=== PATIENT | female | born 1990 | race Caucasian/White ===

== ENCOUNTER 2016-12-07 10:08 | Day surgery (SDC) | payer OTHER ==
--- NOTE | 2016-11-20 06:56 | HP ---
HISTORY AND PHYSICAL: DATE OF SURGERY/ADMISSION: 12/07/16 - [facility] DATE OF OFFICE VISIT: 11/15/16 ATTENDING SURGEON: Heather García MD (DICTATED BY CRISELDA BLANCO) PROCEDURE: Left wrist carpal tunnel release and excision of mass, left hand. CHIEF COMPLAINT: Left hand numbness and tingling. HISTORY OF PRESENT ILLNESS: This is a 26-year-old female who reports symptoms in her left wrist and hand and occasionally in her forearm for the past 9 years. She states the pain has been quite constant. She rates it as a 3 to 5/ 10 primarily involving the wrists on both ulnar and radial aspects and down in the little and ring fingers. She also has numbness in her whole hand. She did have right carpal tunnel release on 09/22/16 with good results and she has had worsening symptoms on the left arm. She has been wearing a brace on her left wrist at nighttime. Also participating in physical therapy but symptoms have continued to worsen. She also complains of mass on the dorsum of her left hand. She would like to proceed with left wrist carpal tunnel release and excision of mass of left hand. PAST MEDICAL HISTORY: 1. Ulnar neuropathy. 2. Carpal tunnel syndrome. 3. Bipolar mood disorder. 4. Hereditary peripheral neuropathy (HNPP). PAST SURGICAL HISTORY: Right carpal tunnel release. MEDICATIONS: 1. Adderall. 2. Clonazepam. 3. Xanax. 4. Gabapentin. 5. Lamictal. 6. Topamax. ALLERGIES: No known drug allergies. She also has a LATEX allergy. FAMILY HISTORY: Diabetes type 1, breast cancer. 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 She denies current tobacco use. She states that she quit smoking 3 weeks ago. She drinks alcohol on occasion and occasionally uses marijuana. REVIEW OF SYSTEMS: A 14-point review of systems was reviewed with the patient, was positive for gastroesophageal reflux disease, back pain, and easy bruising. Negative for known anesthesia problems. Negative for history of DVT and negative for MRSA, hep C, and HIV. PHYSICAL EXAMINATION GENERAL: Well-developed, well-nourished, 26-year-old female, in no acute distress. VITAL SIGNS: Height 61 inches, weight 137 pounds, pulse 84, blood pressure 115/ 75, respirations 16, BMI 25.9. HEENT: Head is normocephalic,atraumatic. NECK: Supple. No palpable lymph nodes. PULMONARY: Lungs are clear to auscultation bilaterally. No wheezes, rales, or rhonchi. CARDIAC: Regular rate and rhythm. S1, S2. No murmurs, rubs, or gallops. No edema. ABDOMEN: Soft and nontender. Positive bowel sounds throughout. MUSCULOSKELETAL: She has no thenar wasting. She has strength. She has positive median nerve compression test. She can flex and extend her fingers well. Slight decrease in sensation in light touch in the median nerve distribution. NEUROLOGIC: Alert and oriented x3. Cranial nerves II through XII are intact. Sensation is intact to light touch. IMPRESSION: Left carpal tunnel syndrome and left hand dorsal mass. PLAN: The patient is scheduled to undergo a left wrist carpal tunnel release and excision mass of left hand with Dr. García on 12/07/16. She will return to the office in 10 to 14 days postop for followup and suture removal. She declined any narcotics for postoperative pain. She will use ibuprofen and Tylenol for postoperative pain management. CRISELDA BLANCO [id number]/[facility] #: [id number] MTDJim
[~2016-12-07 10:08] MED LIST: Buffered Lidocaine 0.9% SYRIN* 5 ML/SYR SYRINGE INTRADERM ONE
[2016-12-07] MEDS ORDERED: Lidocaine 1% INJ* 10 MG/ML 30 ML SDV ONE (11:39)
[2016-12-07] MEDS ORDERED: fentaNYL* 50 MCG/ML 2 ML VIAL (100 MCG VIAL) ONE (11:54)
[2016-12-07] MEDS ORDERED: Midazolam* 1 MG/ML 2 ML VIAL (2 MG) ONE (11:54)
[2016-12-07] MEDS ORDERED: Propofol* 10 MG/ML 20 ML BTL IV PUSH ONE (12:29)
[2016-12-07 12:42] VITALS: BP 106/66
--- NOTE | 2016-12-07 23:45 | OP ---
CC: Dr. García OPERATIVE NOTE: DATE OF OPERATION: 12/07/16 DATE OF : 86 SURGEON: Heather García MD DISPLAY MAKER: CRISELDA Erickson ANESTHESIA: Local MAC. PRE-OP DIAGNOSES: Left hand mass and left carpal tunnel syndrome. POST-OP DIAGNOSES: Left hand mass and left carpal tunnel syndrome. OPERATIVE PROCEDURE: Left carpal tunnel release and removal of foreign body from the left hand. ESTIMATED BLOOD LOSS: Zero. TOURNIQUET TIME: About 10 minutes. INDICATIONS FOR PROCEDURE: Mona is a 26-year-old female who has a painful mass on the dorsal aspe ct of her left hand and numbness and tingling in the median nerve distribution of her left hand. Sanket bar presents for left carpal tunnel release and removal of the mass from the left hand. DESCRIPTION OF PROCEDURE: The patient was brought to the operating room, was given a sedation anest hetic, and a local infiltration of total of 10 cc of 1% plain lidocaine in the palm of her left hand and on the dorsal aspect of the hand overlying the mass. The skin of her left hand and forearm was prepped and draped in the usual sterile fashion. The hand and forearm were exsanguinated and the t [place] elevated to 250 mmHg. A longitudinal incision was made centered over the palpable mass on the dorsal aspect of the left hand. The patient had some pain. So, an additional 5 cc of 1% plain lidocaine was instilled. I then removed a foreign body from the back of the hand which was a piece of glass. The wound was irrigated and the skin edges reapproximated with 4-0 nylon suture. Next, a longitudinal incision was made in the palm in line with the ring finger. We dissected sharply thr ough the subcutaneous tissue down to the transverse carpal ligament. The ligament was incised longi tudinally completely releasing the median nerve proximally and distally to the carpal tunnel. The n erve was in good condition. The wound was irrigated and skin edges reapproximated with 4-0 nylon gilbert ture. The wound was dressed with Xeroform, 4x4, Webril, and an Clive wrap. The patient tolerated the procedure well and was brought to the recovery room in good condition. [id number]/[facility] #: [id number]
== END 2016-12-07 12:51 | disposition home or self-care (01) ==
LOC: OREAST 10:08
PROVIDERS: ATTEND Orthopaedic Surgery
DX: G56.02 Carpal tunnel syndrome, left upper limb (principal); M79.5 Residual foreign body in soft tissue; W45.8XXA Other foreign body or object entering through skin, initial encounter; W25.XXXA Contact with sharp glass, initial encounter; Y92.9 Unspecified place or not applicable
CPT/HCPCS: 88300; J2001; J2250; J2704; J3010